=== PATIENT | male | born 1945 | race Caucasian/White ===

== ENCOUNTER 2022-06-21 10:34 | Emergency (ER) | payer MEDICARE, OTHER, SELFPAY ==
[2022-06-21 10:47] VITALS: BP 176/105; PULSE 60; RESP 18; TEMP 35.8; O2SAT 96
[2022-06-21 11:23] LABS: Basophils Absolute Auto 0.02 K/uL (0.00-0.30); Basophils Percent Auto 0.4 % (0.0-3.0); Eosinophils Percent Auto 1.8 % (0.0-7.0); Hematocrit 49.8 % (37.0-53.0); Hemoglobin* 16.6 gm/dL (13.5-17.5); Lymphocytes Absolute Auto 1.64 K/uL (0.90-2.90); Lymphocytes Percent Auto 29.5 % (20-44); Mean Corpuscular HGB Conc 33 gm/dL (32-36); Mean Corpuscular Hemoglobin 30 pg (26-34); Mean Corpuscular Volume 90 fL (80-100); Monocytes Percent Auto 8.3 % (0.0-11.0); Neutrophils Absolute Auto 3.33 K/uL (1.7-7.0); Platelet Count* 258 K/uL (140-440); RDW Coefficient of Variation % 13.4 % (11.5-15.5); Red Blood Count 5.55 m/uL (4.30-5.90); White Blood Count* 5.55 K/uL (4.50-11.00)
[2022-06-21 11:25] LABS: Slide Review Reflex No
--- NOTE | 2022-06-21 11:25 | ED_ITS ---
HPI - General Adult General Time Seen by Provider: 11:26 Date Seen: 06/21/22 Chief complaint: Unspecified Complaint, Adult Stated complaint: Possible giant cell arteritis; eye irritation Time Seen by Provider: 06/21/22 10:53 Source: patient Mode of arrival: ambulatory Limitations: no limitations History of Present Illness HPI narrative: Patient is a pleasant 76-year-old male who has a history of ulcerative colitis, over the last couple days he has had a feeling of something in his eye he saw the eye doctor this morning, and there was no foreign body but with was concern for temporal arteritis given the patient's symptoms. He describes some pain like he was hit in the right side of his head but does not have any trauma or injury history. No rashes noted. He was sent concerned about temporal arteritis to the ER. The patient has no other symptoms no visual problem. No rashes as mention. Related Data Home Medications Medication Instructions Recorded Confirmed lisinopril 10 mg tablet 10 mg PO DAILY 06/21/22 06/22/22 tamsulosin 0.4 mg capsule 0.4 mg PO DAILY 06/21/22 06/22/22 Previous Rx's Medication Instructions Recorded prednisone 50 mg tablet 60 mg PO DAILY #14 tabs 06/21/22 Allergies Allergy/AdvReac Type Severity Reaction Status Date / Time No Known Drug Allergies Allergy Verified 06/21/22 10:47 Review of Systems Status of ROS: Reports: 6 or more systems reviewed and unremarkable except as noted in History and below PFS PFS Social History Smoking Status: Former smoker Do you use any of these nicotine containing products: Other Second hand tobacco smoke exposure: No How often do you have a drink containing alcohol: never How often do you have six or more drinks on one occasion: Never AUDIT-C Alcohol total score: 0 Non-prescribed substance use: denies use service: Yes Exam Narrative: Exam Narrative: Objective: Patient's vital signs unremarkable other than slight little elevated blood pressure HEENT is unremarkable no facial asymmetry pupils react to light extra movements intact, no facial rashes, no tenderness over the temporal artery area on the right Neurologic nonfocal Const: Vital Signs, click to edit/add: Vital Signs - 24 hr 06/21/22 10:47 Temperature 96.4 F L Pulse Rate [Right Pulse Oximeter] 60 Respiratory Rate 18 Blood Pressure [Ri ght Upper Arm] 176/105 H Pulse Oximetry 96 Oxygen Delivery Me thod Room Air Course Vital Signs Vital signs: Initial Vital Signs Temperature 96.4 F L 06/21/22 10:47 Temperature Source Temporal Artery Scan 06/21/22 10:47 Pulse Rate 60 06/21/22 10:47 Respiratory Rate 18 06/21/22 10:47 Blood Pressure 176/105 H 06/21/22 10:47 Blood Pressure Mean 128 06/21/22 10:47 Blood Pressure Position Sitting 06/21/22 10:47 Pulse Oximetry 96 06/21/22 10:47 Oxygen Delivery Method 06/21/22 10:47 Vital Signs Temperature 96.4 F L 06/21/22 10:47 Pulse Rate 60 06/21/22 10:47 Respiratory Rate 18 06/21/22 10:47 Blood Pressure 176/105 H 06/21/22 10:47 Pulse Oximetry 96 06/21/22 10:47 Oxygen Delivery Method 06/21/22 10:47 Temperature 96.4 F L 06/21/22 10:47 Pulse Rate 60 06/21/22 10:47 Respiratory Rate 18 06/21/22 10:47 Blood Pressure 176/105 H 06/21/22 10:47 Pulse Oximetry 96 06/21/22 10:47 Oxygen Delivery Method 06/21/22 10:47 Medical Decision Making MDM Narrative Medical decision making narrative: Patient is a 76 year white male with some right-sided methodist or artery area tenderness, some eye concern. Evaluated by eye physician was concerned about temporal arteritis. Will check a CRP and sed rate laboratory studies, : Has provided surgical consultation will come see the patient here to discuss possibility for temporal artery biopsy. The patient was informed of the decision plan will get prednisone started now as I think that is appropriate to begin started 60 mg daily. Addendum: The patient with : Who offered him temporal artery biopsy, the patient is hesitant at this point, he will follow-up with Dr. Thomas ski will give a week prednisone will set up an appointment for Dr. Banks as well. Return as needed. Lab Data Labs: Lab Results 06/21/22 06/21/22 06/21/22 Range/Units 11:13 11:13 11:13 WBC 5.55 (4.50-11.00) K/uL RBC 5.55 (4.30-5.90) m/uL Hgb 16.6 (13.5-17.5) gm/dL Hct 49.8 (37.0-53.0) % MCV 90 (80-100) fL MCH 30 (26-34) pg MCHC 33 (32-36) gm/dL RDW Coeff of Josiah 13.4 (11.5-15.5) % Plt Count 258 (140-440) K/uL Neut % (Auto) 60.0 (42.0-72.0) % Lymph % (Auto) 29.5 (20-44) % [place] % (Auto) 8.3 (0.0-11.0) % Eos % (Auto) 1.8 (0.0-7.0) % Baso % (Auto) 0.4 (0.0-3.0) % Neut # (Auto) 3.33 (1.7-7.0) K/uL Lymph # (Auto) 1.64 (0.90-2.90) K/uL [place] # (Auto) 0.50 (0.00-0.90) K/UL Eos # (Auto) 0.10 (0.00-0.50) K/uL Baso # (Auto) 0.02 (0.00-0.30) K/uL ESR <7 L (2-15) mm/hr Sodium 138 (135-149) mmol/L Potassium 4.1 (3.6-5.1) mmol/L Chloride 109 (96-114) mmol/L Carbon Dioxide 25 (20-32) mmol/L BUN 9 (7-30) mg/dL Creatinine 0.7 (0.5-1.5) mg/dL Estimated GFR 96 ml/min Glucose 94 (60-115) mg/dL Calcium 8.9 (8.4-10.6) mg/dL C-Reactive Protein < 0.5 L (0.5-1.0) mg/dL Discharge Plan Discharge Clinical Impression: Acute facial pain Patient Disposition: Home, Self-Care Condition: Stable Additional Instructions: prednisone daily, recheck with primary care in 2 to 4 days, return sooner as needed, recheck per surgeon. Surgery check in time 10:45 AM on [facility] March 10. Call Operating Room Scheduling at [phone] with questions. No eating or drinking 8 hours prior. Follow up appointment with Dr. Alegre on June 26 at 11:15 AM Activity Level: Light activity Discharge Diet: Regular Prescriptions: New prednisone 50 mg tablet 60 mg PO DAILY Qty: 14 0RF No Action tamsulosin 0.4 mg capsule 0.4 mg PO DAILY lisinopril 10 mg tablet 10 mg PO DAILY Stand Alone Forms: [employer] Info Instructions
[2022-06-21] MEDS: predniSONE 20 MG TABLET 60 MG PO (11:32)
[2022-06-21 11:42] LABS: Chloride* 109 mmol/L (96-114); Sodium* 138 mmol/L (135-149)
[2022-06-21 11:43] LABS: Potassium* 4.1 mmol/L (3.6-5.1)
[2022-06-21 11:45] LABS: Creatinine* 0.7 mg/dL (0.5-1.5); Estimated Glomerular Filt Rate 96 ml/min
[2022-06-21 11:46] LABS: Blood Urea Nitrogen* 9 mg/dL (7-30); Calcium* 8.9 mg/dL (8.4-10.6); Carbon Dioxide* 25 mmol/L (20-32); Glucose* 94 mg/dL (60-115)
[2022-06-21 11:51] LABS: C Reactive Protein* < 0.5 mg/dL (0.5-1.0)
[2022-06-21 11:59] LABS: Erythrocyte SedimentationRate* <7 mm/hr (2-15)
--- NOTE | 2022-06-21 12:35 | P.GSCN_ITS ---
History of Present Illness Consult details Date Seen: 06/21/22 Consult date: 06/21/22 Narrative: Patient presents for new onset headache and irritation of his right eye. He states that the pain started about 2 days ago. He has some tenderness to touch around his right temporal in fullness under his eye. His biggest complaint is that it feels like ?there is something stuck in my eye?. Was seen by Ophthalmology, with no corneal injury to or debris seen. He was sent to the emergency department for concern for possible temporal arteritis. He has never had pain like this before. He does have a history of ulcerative colitis, not currently requiring medication. He has never had surgery before. Denies any problems with bleeding or blood clots. He does report a family history of ?difficulty waking up and being combative after surgery?. This was in his father and grandfather, his brothers have not had any problems with anesthesia. He denies any history of malignant hyperthermia in his family. Review of Systems Status of ROS: Reports: 10 or more systems reviewed and unremarkable except as noted in History and below [facility] Social History Smoking Status: Former smoker Do you use any of these nicotine containing products: Other Second hand tobacco smoke exposure: No How often do you have a drink containing alcohol: never How often do you have six or more drinks on one occasion: Never AUDIT-C Alcohol total score: 0 Non-prescribed substance use: denies use service: Yes Meds Home Medications and Allergies Home Medications Medication Instructions Recorded Confirmed Type lisinopril 10 mg tablet 10 mg PO DAILY 06/21/22 06/21/22 History tamsulosin 0.4 mg capsule 0.4 mg PO DAILY 06/21/22 06/21/22 History Allergies Allergy/AdvReac Type Severity Reaction Status Date / Time No Known Drug Allergies Allergy Verified 06/21/22 10:47 Exam Narrative: Exam Narrative: General: Alert and oriented, no acute distress HEENT: Tender to palpation over right temporal artery. Artery was easily palpated. No swelling to the right side of the face her I would noted. Patient denies any blurry vision. Pupils equal round and reactive. No redness to sclera. Respiratory: Clear breath sounds bilaterally CV: Regular rhythm rate, well perfused no murmurs. Const: Vital Signs, click to edit/add: Vital Signs - 24 hr 06/21/22 10:47 Temperature 96.4 F L Pulse Rate [Right Pulse Oximeter] 60 Respiratory Rate 18 Blood Pressure [Ri ght Upper Arm] 176/105 H Pulse Oximetry 96 Oxygen Delivery Me thod Room Air Results Labs Labs: Abnormal lab results 06/21/22 06/21/22 Range/Units 11:13 11:13 ESR <7 L (2-15) mm/hr C-Reactive Protein < 0.5 L (0.5-1.0) mg/dL Diabetes panel 06/21/22 Range/Units 11:13 Sodium 138 (135-149) mmol/L Potassium 4.1 (3.6-5.1) mmol/L Chloride 109 (96-114) mmol/L Carbon Dioxide 25 (20-32) mmol/L BUN 9 (7-30) mg/dL Creatinine 0.7 (0.5-1.5) mg/dL Glucose 94 (60-115) mg/dL Calcium 8.9 (8.4-10.6) mg/dL Calcium panel 06/21/22 Range/Units 11:13 Calcium 8.9 (8.4-10.6) mg/dL Pituitary panel 06/21/22 Range/Units 11:13 Sodium 138 (135-149) mmol/L Potassium 4.1 (3.6-5.1) mmol/L Chloride 109 (96-114) mmol/L Carbon Dioxide 25 (20-32) mmol/L BUN 9 (7-30) mg/dL Creatinine 0.7 (0.5-1.5) mg/dL Glucose 94 (60-115) mg/dL Calcium 8.9 (8.4-10.6) mg/dL Adrenal panel 06/21/22 Range/Units 11:13 Sodium 138 (135-149) mmol/L Potassium 4.1 (3.6-5.1) mmol/L Chloride 109 (96-114) mmol/L Carbon Dioxide 25 (20-32) mmol/L BUN 9 (7-30) mg/dL Creatinine 0.7 (0.5-1.5) mg/dL Glucose 94 (60-115) mg/dL Calcium 8.9 (8.4-10.6) mg/dL All other labs normal. Assessment and Plan Assessment and plan (1) Acute facial pain: Status: Acute Plan Patient presents with new onset temporal headache and eye irritation. Given his age and presentation, this is concerning for possible temporal arteritis. Labs were reviewed and are all within normal limits. Although classically you do see an elevation in ESR and CRP, having normal labs does not rule out the diagnosis. He was started on steroids here in the emergency department and prescribed a 7 day course. I discussed with him the risks and benefits of performing a temporal artery biopsy. Risks included, but were not limited to: Bleeding, infection, risk of damage during structures and possible need for additional procedures. All questions and concerns were addressed with patient agreeing at this time to proceed with a biopsy. He is currently scheduled for surgery Sunday afternoon. An EKG was performed for a preop history and physical, this was within normal limits.
== END 2022-06-21 12:48 | disposition home or self-care (01) ==
LOC: ED 11:27
PROVIDERS: Emergency Provider Family Medicine; PCP Family Medicine
DX: R51.9 Headache, unspecified (principal)
CPT/HCPCS: 36415; 80048; 85025; 85651; 86140; 93005; 99284; J7512

== ENCOUNTER 2022-06-23 10:33 | Day surgery (SDC) | payer MEDICARE, OTHER, SELFPAY ==
[2022-06-23 11:13] VITALS: BP 146/83; PULSE 54; RESP 16; TEMP 36.4; O2SAT 94
[2022-06-23] MEDS: SODIUM CHLORIDE 0.9 % (FLUSH) 10 ML SYRINGE IVF (11:30)
[2022-06-23] MEDS: LACTATED RINGERS 1000 ML 1,000 ML 100 ML IV ×2 (11:30→13:32)
[2022-06-23 11:31] VITALS: BMI 28.3
--- NOTE | 2022-06-23 12:31 | W.ANESCHARGE ---
Anesthesia Charges Start Date/Time Anesthesia Start Date: 06/23/22 Anesthesia Start Time: 12:27 Stop Date/Time Anesthesia Stop Date: 06/23/22 Anesthesia Stop Time: 13:47 Summary Extremes of Age - Over 70 or under 1: MDA
[2022-06-23] MEDS: CEFAZOLIN 1 GM inj IVP (12:40)
[2022-06-23] MEDS: LIDOCAINE 1% MDV 20 ML INJECTION (12:55)
[2022-06-23] MEDS: BUPIVACAINE 0.25% 30 ML INJECTION (12:55)
[2022-06-23 13:46] VITALS: BP 101/51; PULSE 60; RESP 18; TEMP 36.2; O2SAT 92
[2022-06-23] MEDS: ACETAMINOPHEN 325 MG TABLET 650 MG PO (13:47)
--- NOTE | 2022-06-23 13:49 | PM.GSPRC ---
Operative Note Date of procedure: 06/23/22 Pre-op diagnosis: Right temporal headaches, rule out temporal arteritis Post-op diagnosis: Same Type of Procedure: Right temporal artery biopsy Indications: Patient is a 76-year-old male with new onset right temporal headaches and vision changes. Symptoms are concerning for possible temporal arteritis. He has been started on steroids, but a biopsy was requested. Risks and benefits of operative intervention were discussed at length with the patient. Risks included, but were not limited to: Bleeding, infection, risk of damage surrounding structures and possible need for additional procedures. All questions and concerns were addressed with patient agreeing to proceed. Procedure Description: After discussing the risks and benefits of the procedure, the patient signed informed consent.? The operative site was marked and the patient was brought to the operating room and placed on the operating table in supine position.? Care was taken to pad the patient's pressure points.?? The patient was then given sedation by anesthesia.?? The operative site was then prepped and draped in the usual sterile fashion.? A time-out was then performed. ? Attention was directed to the right side. The handheld Doppler was utilized to rah out the course of the temporal artery. Local anesthetic was utilized to numb up the area. A 15 blade was used to make an approximate 5 cm incision. Cautery was then used to divide the subcutaneous tissue and assure hemostasis. The artery was visualized within the temporoparietal fascia, which was entered with sharp dissection. A proximal portion of the artery was dissected out and doubly ligated with 3 0 Vicryl and a medium clip. The dissection was then carried distally for approximately 2 cm and ligated. The specimen was then carefully removed, trying to limit manipulation of the vessel itself, and passed off to the back table. Again hemostasis was assured and the incision closed with interrupted 3 0 Vicryl and running 4 Monocryl. Sterile dressings were then applied. ? The patient was then woken and transported to the recovery area in stable condition. ? The patient tolerated the procedure well. Findings: Right temporal artery, normal in appearance Anesthesia: MAC and local Surgeon: Leann Quintero MD Estimated blood loss (mL): 2 Additional Specimen Information: Right temporal artery Condition: stable Disposition: same day
--- NOTE | 2022-06-23 13:50 | W.ANESCHARGE ---
Anesthesia Charges Start Date/Time Anesthesia Start Date: 06/23/22 Anesthesia Start Time: 12:27 Stop Date/Time Anesthesia Stop Date: 06/23/22 Anesthesia Stop Time: 13:47
[2022-06-23 14:00] VITALS: BP 124/70; PULSE 52; RESP 18; O2SAT 94
[2022-06-23 14:15] VITALS: BP 135/73; PULSE 53; RESP 18; O2SAT 93
[2022-06-23 14:30] VITALS: BP 98/75; PULSE 64; RESP 18; O2SAT 95
--- NOTE | 2022-06-23 14:57 | SUR.PHASEII ---
PATIENT TOLERATED TOAST, WATER AND COFFEE. PATIENT VOIDED PRIOR TO DISCHARGE.
== END 2022-06-23 15:00 | disposition home or self-care (01) ==
PROVIDERS: PCP Family Medicine; Visit Provider Surgery
PROC: (CPT 37609; principal; 2022-06-23 12:00)
DX: R51.9 Headache, unspecified (principal); H53.9 Unspecified visual disturbance
CPT/HCPCS: 37609; 00352; 88305; 99100; A9270; J0690; J1100; J2405; J2704; J3010; J3490; J7120

== ENCOUNTER 2022-06-24 10:36 | Emergency (ER) | payer MEDICARE, OTHER, SELFPAY ==
[2022-06-24] VITALS (20 sets, daily range): BP systolic 119–141; BP diastolic 63–73; PULSE 47–67; RESP 14; TEMP 36.3; O2SAT 90–98; BMI 28.3
--- NOTE | 2022-06-24 11:13 | ED_ITS ---
HPI - Chest Pain General Chief Complaint: Chest Pain Stated Complaint: Chest pain, pain radiating across shoulderblades Time Seen by Provider: 06/24/22 10:51 History of Present Illness HPI narrative: This 76-year-old male comes in reporting chest pain that started prior to arrival here. He states that he was at [employer] doing light activity when this pain came on in the left sternal area and radiating around toward his back. He did not have any nausea, vomiting, lightheadedness, shortness of breath or diaphoresis. He went out of the building and his pain had improved. When he got in the car it seemed to come back again. He arrived here for evaluation and reports that his pain worsened again when ambulating into the emergency department. At the time of my visit he is having no pain. He did have some diaphoresis when ambulating here from his car. He does not have a prior heart history. He did have a cardiac workup a couple years ago because of similar pains. His results of these tests were all normal. He was prescribed metoprolol and nitroglycerin. He did not ever take nitroglycerin. He states that the metoprolol was not well tolerated so he is no longer taking this medicine. He is on some blood pressure medicines. His cholesterol is borderline by his report. He does not have diabetes and is not a smoker. Prior to this he has not had any symptoms of exercise intolerance. Related Data Home Medications Medication Instructions Recorded Confirmed lisinopril 10 mg tablet 10 mg PO DAILY 06/21/22 06/24/22 tamsulosin 0.4 mg capsule 0.4 mg PO DAILY 06/21/22 06/23/22 CDD DAILY 06/23/22 mesalamine PO 06/23/22 prazosin 2 mg .Route DAILY 06/23/22 06/23/22 viatmin d 1,000 mg .krishnamurthy 06/23/22 aspirin 81 mg capsule 81 mg PO DAILY 06/24/22 06/24/22 Previous Rx's Medication Instructions Recorded prednisone 50 mg tablet 60 mg PO DAILY #14 tabs 06/21/22 Allergies Allergy/AdvReac Type Severity Reaction Status Date / Time No Known Drug Allergies Allergy Verified 06/23/22 10:50 Review of Systems Status of ROS Reports: 10 or more systems reviewed and unremarkable except as noted in History and below Narrative Constitutional: No fevers, no weight gain or loss. Eyes: No discharge. No vision changes. HENT: No congestion, no sore throat, no ear pain. Cardiovascular: No palpitations. Chest pain as described above. Respiratory: No shortness of breath, no wheezes, no cough. Gastrointestinal: No abdominal pain, no vomiting, no diarrhea. Genitourinary: No dysuria, no hematuria. Musculoskeletal: Normal range of motion. Skin: No rashes, no pruritis. Neurological: No dizziness, weakness, sensory change, speech change. Endo/Heme/Allergies: No bruising or bleeding. No polydipsia. Pysch: no suicidality, no anxiety, no insomnia. All other systems reviewed and are negative. [facility] Social History Smoking Status: Former smoker Do you use any of these nicotine containing products: Other Nicotine containing products detail: uses nicotine lozenges about 5 times/day Second hand tobacco smoke exposure: No How often do you have a drink containing alcohol: never How often do you have six or more drinks on one occasion: Never AUDIT-C Alcohol total score: 0 Non-prescribed substance use: denies use Non-prescribed substance use details: takes CDD tablet 1x/day Caffeine: Yes (2 cups/day coffee) service: Yes Exam Narrative Exam Narrative: Constitutional: Well-developed, well-nourished, no acute distress. HEENT: Normocephalic, atraumatic. Neck: Normal range of motion. Nontender. Supple. Heart: Regular. No murmurs. Normal rate. Intact distal pulses. Lungs: Clear to auscultation. No chest discomfort. No wheezes, rhonchi, or rales. Abdomen: Normal bowel sounds. Nontender. No rebound tenderness. Genitalia: Deferred. Back: No midline tenderness. Normal range of motion. Extremities: Normal range of motion. No injury. Skin: Intact. No rash. Warm. No erythema or pallor. Neurologic: No altered sensation. No weakness. Alert and oriented. Psychiatric: No suicidality. No anxiety or depression. No insomnia. Nursing notes and vitals signs are reviewed. Const Vital Signs, click to edit/add: Vital Signs - 24 hr 06/24/22 10:44 06/24/22 11:36 06/24/22 11:45 Temperature 97.4 F L Pulse Rate 60 57 L Pulse Rate [Pulse Oximeter] 67 Respiratory Rate 14 Blood Pressure Blood Pressure [Left Upper Arm] 141/73 H Pulse Oximetry 96 94 93 Oxygen Delivery Method Room Air 06/24/22 12:00 06/24/22 12:01 06/24/22 12:27 Temperature Pulse Rate 59 L 58 L 49 L Pulse Rate [Pulse Oximeter] Respiratory Rate Blood Pressure 119/63 Blood Pressure [Left Upper Arm] Pulse Oximetry 90 92 95 Oxygen Delivery Method 06/24/22 12:30 06/24/22 12:31 Temperature Pulse Rate 48 L 53 L Pulse Rate [Pulse Oximeter] Respiratory Rate Blood Pressure 128/63 Blood Pressure [Left Upper Arm] Pulse Oximetry 96 97 Oxygen Delivery Method Course Vital Signs Vital signs: Initial Vital Signs Temperature 97.4 F L 06/24/22 10:44 Temperature Source Temporal Artery Scan 06/24/22 10:44 Pulse Rate 67 06/24/22 10:44 Pulse Rhythm 06/24/22 10:44 Respiratory Rate 14 06/24/22 10:44 Blood Pressure 141/73 H 06/24/22 10:44 Blood Pressure Mean 95 06/24/22 10:44 Blood Pressure Position Supine 06/24/22 10:44 Pulse Oximetry 96 06/24/22 10:44 Oxygen Delivery Method 06/24/22 10:44 Vital Signs Temperature 97.4 F L 06/24/22 10:44 Pulse Rate 67 06/24/22 10:44 Respiratory Rate 14 06/24/22 10:44 Blood Pressure 141/73 H 06/24/22 10:44 Pulse Oximetry 96 06/24/22 10:44 Oxygen Delivery Method 06/24/22 10:44 Temperature 97.4 F L 06/24/22 10:44 Pulse Rate 53 L 06/24/22 12:31 Respiratory Rate 14 06/24/22 10:44 Blood Pressure 128/63 06/24/22 12:31 Pulse Oximetry 97 06/24/22 12:31 Oxygen Delivery Method 06/24/22 10:44 MDM - Chest Pain MDM Narrative Medical decision making narrative: This patient comes in with some chest discomfort as described above. He did have a thorough cardiac workup a couple years ago with normal findings. He does not describe any exercise intolerance recently. Today his symptoms occurred doing very light activity. He arrives with reassuring vital signs. EKG shows normal sinus rhythm. And serial troponins return at 0. This patient is taking a steroid, prednisone 60 mg daily, with the pending results of a biopsy of the right temporal artery. He does not have known history of polymyalgia rheumatica or temporal arteritis. His chest pain today is atypical and not likely a sign of coronary artery disease. It may be related to his steroid dosing or some other atypical cause. At the time of discharge the patient appears safe for outpatient management. The treatment plan is reviewed along with written and verbal return precautions. Reasons to return and the importance of close followup were also reviewed. Lab Data Labs: Lab Results 06/24/22 06/24/22 06/24/22 Range/Units 11:00 11:00 11:00 WBC 10.41 (4.50-11.00) K/uL RBC 5.10 (4.30-5.90) m/uL Hgb 15.3 (13.5-17.5) gm/dL Hct 46.0 (37.0-53.0) % MCV 90 (80-100) fL MCH 30 (26-34) pg MCHC 33 (32-36) gm/dL RDW Coeff of Josiah 13.2 (11.5-15.5) % Plt Count 286 (140-440) K/uL Neut % (Auto) 86.6 H (42.0-72.0) % Lymph % (Auto) 10.1 L (20-44) % [place] % (Auto) 3.0 (0.0-11.0) % Eos % (Auto) 0.0 (0.0-7.0) % Baso % (Auto) 0.0 (0.0-3.0) % Neut # (Auto) 9.00 H (1.7-7.0) K/uL Lymph # (Auto) 1.10 (0.90-2.90) K/uL [place] # (Auto) 0.30 (0.00-0.90) K/UL Eos # (Auto) 0.00 (0.00-0.50) K/uL Baso # (Auto) 0.00 (0.00-0.30) K/uL Sodium 136 (135-149) mmol/L Potassium 4.2 (3.6-5.1) mmol/L Chloride 105 (96-114) mmol/L Carbon Dioxide 26 (20-32) mmol/L BUN 17 (7-30) mg/dL Creatinine 0.7 (0.5-1.5) mg/dL Estimated Creat Clear 53.44 Estimated GFR 96 ml/min Glucose 168 H (60-115) mg/dL Calcium 8.8 (8.4-10.6) mg/dL POC Troponin I 0.00 L (0.01-0.04) ng/ml 06/24/22 Range/Units 13:30 WBC (4.50-11.00) K/uL RBC (4.30-5.90) m/uL Hgb (13.5-17.5) gm/dL Hct (37.0-53.0) % MCV (80-100) fL MCH (26-34) pg MCHC (32-36) gm/dL RDW Coeff of Josiah (11.5-15.5) % Plt Count (140-440) K/uL Neut % (Auto) (42.0-72.0) % Lymph % (Auto) (20-44) % [place] % (Auto) (0.0-11.0) % Eos % (Auto) (0.0-7.0) % Baso % (Auto) (0.0-3.0) % Neut # (Auto) (1.7-7.0) K/uL Lymph # (Auto) (0.90-2.90) K/uL [place] # (Auto) (0.00-0.90) K/UL Eos # (Auto) (0.00-0.50) K/uL Baso # (Auto) (0.00-0.30) K/uL Sodium (135-149) mmol/L Potassium (3.6-5.1) mmol/L Chloride (96-114) mmol/L Carbon Dioxide (20-32) mmol/L BUN (7-30) mg/dL Creatinine (0.5-1.5) mg/dL Estimated Creat Clear Estimated GFR ml/min Glucose (60-115) mg/dL Calcium (8.4-10.6) mg/dL POC Troponin I 0.00 L (0.01-0.04) ng/ml ECG Data Attestation: I personally reviewed and interpreted this ECG as follows: Interpretation: Normal sinus rhythm. Rate is 66 beats per minute. There are no ST or T-wave abnormalities. Discharge Plan Discharge Clinical Impression: Atypical chest pain Patient Disposition: Home, Self-Care Condition: Improved Additional Instructions: Continue current plans. Follow up with MD or return if symptoms are recurrent or worsening. Prescriptions: No Action tamsulosin 0.4 mg capsule 0.4 mg PO DAILY lisinopril 10 mg tablet 10 mg PO DAILY prednisone 50 mg tablet 60 mg PO DAILY Qty: 14 0RF aspirin 81 mg capsule 81 mg PO DAILY prazosin 2 mg .Route DAILY mesalamine PO viatmin d 1,000 mg .krishnamurthy CDD DAILY Follow Up/Referrals: Christiano Alegre MD [Primary Care Provider] - Stand Alone Forms: [employer] Info Instructions
[2022-06-24 11:34] LABS: Hemoglobin* 15.3 gm/dL (13.5-17.5); Immature Granulocytes Abs Auto 0.03 K/uL (0.00-0.30); Immature Granulocytes Pct Auto 0.3 %; Lymphocytes Percent Auto 10.1 % (20-44); Mean Corpuscular HGB Conc 33 gm/dL (32-36); Mean Corpuscular Hemoglobin 30 pg (26-34); Mean Corpuscular Volume 90 fL (80-100); Neutrophils Percent Auto 86.6 % (42.0-72.0); Platelet Count* 286 K/uL (140-440); RDW Coefficient of Variation % 13.2 % (11.5-15.5); Slide Review Reflex No; White Blood Count* 10.41 K/uL (4.50-11.00)
[2022-06-24 11:47] LABS: Chloride* 105 mmol/L (96-114); Potassium* 4.2 mmol/L (3.6-5.1); Sodium* 136 mmol/L (135-149)
[2022-06-24 11:50] LABS: Blood Urea Nitrogen* 17 mg/dL (7-30); Calcium* 8.8 mg/dL (8.4-10.6); Carbon Dioxide* 26 mmol/L (20-32); Creatinine* 0.7 mg/dL (0.5-1.5); Est. Creatinine Clearance* 53.44; Estimated Glomerular Filt Rate 96 ml/min; Glucose* 168 mg/dL (60-115)
== END 2022-06-24 14:35 | disposition home or self-care (01) ==
PROVIDERS: Emergency Provider Emergency Medicine Emergency Medical Services; PCP Family Medicine
DX: R07.89 Other chest pain (principal)
CPT/HCPCS: 36415; 80048; 84484; 85025; 93005; 94761; 99284; 99285

== ENCOUNTER 2023-01-02 06:05 | Observation (INO) | payer MEDICARE, OTHER, SELFPAY ==
[2023-01-02] VITALS (33 sets, daily range): BP systolic 111–161; BP diastolic 64–100; PULSE 53–68; RESP 16; TEMP 36.4–36.6; O2SAT 92–98; BMI 29.0
--- NOTE | 2023-01-02 | CT_ITS ---
Patient: MARIUM RANDHAWA Facility:?[facility] R[facility] Patient ID:?[id number] Site Patient ID:?[id number]. Site :?1945 Study:?CT-Head Angio WITH 95CC [id number] CONTRAST STROKE co-01/02/2023 6:54:11 AM Ordering Physician:Kayden Eric Final Report: CLINICAL HISTORY: Dizziness. TECHNIQUE: CTA head with contrast bolus tracking. 3D angiographic rendering using maximum intensity projection (MIP) and images permanently archived. COMPARISON: None available. FINDINGS: The right vertebral remains occluded. The petrous, cavernous, and supraclinoid segments of the internal carotid arteries are patent. The anterior and middle cerebral arteries are patent. The anterior communicating artery is visualized and is within normal limits. The intracranial left vertebral artery, basilar trunk, and posterior cerebral arteries are patent. Scattered intracranial atherosclerotic disease. 10mm hypervascular lesion in the lesion in the posterior right frontal lobe. No evidence of cerebral aneurysm. IMPRESSION: 1. The right vertebral artery remains occluded intracranially. 2. 10mm hypervascular/enhancing lesion in the posterior right frontal lobe. This is nonspecific but may reflect an underlying arteriovenous shunting lesion. MRI of the brain with and without contrast as well as vjdo-db-ehcocn MRA of the head to include the vertex of the head is recommended. Pending the results of these examinations, catheter angiogram should be considered. Please note that all CT scans at this facility use dose modulation, iterative reconstruction, and/or weight-based dosing when appropriate to reduce radiation dose to as low as reasonably achievable. Dictated by Lui Gibbs MD @ 01/02/2023 10:37:14 AM Signed by:?Lui Gibbs MD @01/02/2023 10:37:14 AM (Electronic Signature)
--- NOTE | 2023-01-02 | CT_ITS ---
Patient: MARIUM RANDHAWA Facility:?[facility] R[facility] Patient ID:?[id number] Site Patient ID:?[id number]. Site :?1945 Study:?CT-Neck Angio WITH 95CC [id number] CONTRAST STROKE co-01/02/2023 6:55:08 AM Ordering Physician:Kayden Eric Final Report: CLINICAL HISTORY: Dizziness. TECHNIQUE: CTA neck with contrast bolus tracking. 3D angiographic rendering using maximum intensity projection (MIP) and images permanently archived. COMPARISON: None available. FINDINGS: The great vessels are patent. The common carotid arteries are patent. Mild (less than 50 percent) atherosclerotic stenoses of the bilateral proximal ICAs by NASCET criteria. The more distal cervical ICAs are patent. 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 The remains occluded throughout its course. The origin and cervical segments of the left vertebral artery are patent. IMPRESSION: 1. 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 2. Mild (<50%) stenosis of the bilateral proximal ICAs by NASCET criteria. Please note that all CT scans at this facility use dose modulation, iterative reconstruction, and/or weight-based dosing when appropriate to reduce radiation dose to as low as reasonably achievable. Dictated by Lui Gibbs MD @ 01/02/2023 10:41:43 AM Signed by:?Lui Gibbs MD @01/02/2023 10:41:43 AM (Electronic Signature)
--- NOTE | 2023-01-02 | CT_ITS ---
Patient: MARIUM RANDHAWA Facility:?[facility] Patient ID:?[id number] Site Patient ID:?[id number]. Site :?1945 Study:?CT-Head W/O-01/02/2023 6:48:33 AM Ordering Physician:Kayden Eric Final Report: INDICATION: Clinical signs and symptoms of an acute stroke. Dizziness COMPARISON: None TECHNIQUE: CT examination of the head was performed as axial sections without intravenous contrast. Images were obtained from the vertex of the skull through the skull base. Please note that all CT scans at this facility use dose modulation, iterative reconstruction, and/or weight-based dosing when appropriate to reduce radiation dose to as low as reasonably achievable. FINDINGS: The brain shows no sign of mass lesion, mass effect, hemorrhage, or edema. The ventricles and sulci are normal in appearance for the patient`s age. The visualized portions of the orbits are normal in appearance. The osseous structures are normal in their appearance with no sign of abnormality in the skull base or calvarium. Intracranial atherosclerosis noted Incidental paranasal sinus mucosal inflammatory disease. IMPRESSION: No acute intracranial findings. Intracranial atherosclerosis. Incidental paranasal sinus mucosal inflammatory disease. Please note that all CT scans at this facility use dose modulation, iterative reconstruction, and/or weight-based dosing when appropriate to reduce radiation dose to as low as reasonably achievable. Dictated by Adrián Porras MD @ 01/02/2023 6:54:54 AM ----- ADDENDUM ----- We confirmed that this report was received by Dr. Post at 6:55 am on January 02, 2023. Dictated by Adrián Porras MD @ Jan 02 2023 6:55AM Signed by:?Adrián Porras MD @01/02/2023 6:54:54 AM (Electronic Signature)
--- NOTE | 2023-01-02 06:14 | CRLHL7_ITS ---
For Patients: As a result of the Century Cures Act, medical imaging exams and procedure reports are released immediately into your electronic medical record. You may view this report before your referring provider. If you have questions, please contact your health care provider. INDICATION: Clinical signs and symptoms of an acute stroke. Dizziness COMPARISON: None TECHNIQUE: CT examination of the head was performed as axial sections without intravenous contrast. Images were obtained from the vertex of the skull through the skull base. Please note that all CT scans at this facility use dose modulation, iterative reconstruction, and/or weight-based dosing when appropriate to reduce radiation dose to as low as reasonably achievable. FINDINGS: The brain shows no sign of mass lesion, mass effect, hemorrhage, or edema. The ventricles and sulci are normal in appearance for the patient`s age. The visualized portions of the orbits are normal in appearance. The osseous structures are normal in their appearance with no sign of abnormality in the skull base or calvarium. Intracranial atherosclerosis noted Incidental paranasal sinus mucosal inflammatory disease. IMPRESSION: No acute intracranial findings. Intracranial atherosclerosis. Incidental paranasal sinus mucosal inflammatory disease. Please note that all CT scans at this facility use dose modulation, iterative reconstruction, and/or weight-based dosing when appropriate to reduce radiation dose to as low as reasonably achievable. Dictated by Adrián Porras MD @ 01/02/2023 6:54:54 AM (Electronically Signed)
--- NOTE | 2023-01-02 06:23 | CRLHL7_ITS ---
For Patients: As a result of the Century Cures Act, medical imaging exams and procedure reports are released immediately into your electronic medical record. You may view this report before your referring provider. If you have questions, please contact your health care provider. CLINICAL HISTORY: Dizziness. TECHNIQUE: CTA head with contrast bolus tracking. 3D angiographic rendering using maximum intensity projection (MIP) and images permanently archived. COMPARISON: None available. FINDINGS: The right vertebral remains occluded. The petrous, cavernous, and supraclinoid segments of the internal carotid arteries are patent. The anterior and middle cerebral arteries are patent. The anterior communicating artery is visualized and is within normal limits. The intracranial left vertebral artery, basilar trunk, and posterior cerebral arteries are patent. Scattered intracranial atherosclerotic disease. 10mm hypervascular lesion in the lesion in the posterior right frontal lobe. No evidence of cerebral aneurysm. IMPRESSION: 1. The right vertebral artery remains occluded intracranially. 2. 10mm hypervascular/enhancing lesion in the posterior right frontal lobe. This is nonspecific but may reflect an underlying arteriovenous shunting lesion. MRI of the brain with and without contrast as well as onre-kt-gnopkh MRA of the head to include the vertex of the head is recommended. Pending the results of these examinations, catheter angiogram should be considered. Please note that all CT scans at this facility use dose modulation, iterative reconstruction, and/or weight-based dosing when appropriate to reduce radiation dose to as low as reasonably achievable. Dictated by Lui Gibbs MD @ 01/02/2023 10:37:14 AM (Electronically Signed)
[2023-01-02 06:26] LABS: Basophils Absolute Auto 0.03 K/uL (0.00-0.30); Basophils Percent Auto 0.5 % (0.0-3.0); Eosinophils Absolute Auto 0.23 K/uL (0.00-0.50); Eosinophils Percent Auto 3.6 % (0.0-7.0); Hematocrit 49.9 % (37.0-53.0); Hemoglobin* 16.6 gm/dL (13.5-17.5); Lymphocytes Absolute Auto 1.81 K/uL (0.90-2.90); Lymphocytes Percent Auto 28.2 % (20-44); Mean Corpuscular HGB Conc 33 gm/dL (32-36); Mean Corpuscular Hemoglobin 29 pg (26-34); Mean Corpuscular Volume 88 fL (80-100); Monocytes Percent Auto 7.8 % (0.0-11.0); Neutrophils Absolute Auto 3.84 K/uL (1.7-7.0); Neutrophils Percent Auto 59.9 % (42.0-72.0); Platelet Count* 260 K/uL (140-440); RDW Coefficient of Variation % 13.4 % (11.5-15.5); Red Blood Count 5.65 m/uL (4.30-5.90); White Blood Count* 6.41 K/uL (4.50-11.00)
[2023-01-02 06:27] LABS: Slide Review Reflex No
[2023-01-02 06:40] LABS: Chloride* 108 mmol/L (96-114); Potassium* 4.2 mmol/L (3.6-5.1); Sodium* 138 mmol/L (135-149)
[2023-01-02 06:43] LABS: Creatinine* 0.8 mg/dL (0.5-1.5); Estimated Glomerular Filt Rate 92 ml/min
[2023-01-02 06:44] LABS: Anion Gap 7 mEq/L (7-15); Blood Urea Nitrogen* 12 mg/dL (7-30); Calcium* 9.2 mg/dL (8.4-10.6); Carbon Dioxide* 23 mmol/L (20-32); Glucose* 112 mg/dL (60-115)
[2023-01-02 06:49] LABS: C Reactive Protein* < 0.5 mg/dL (0.5-1.0)
--- OUTSIDE RECORDS SUMMARY | 2023-01-02 06:53 | XMS_ITS | Continuity of Care Document ---
Author Name Unknown Organization [facility] Address [address] [address] [place] [address] Phone Care Team Providers Care Professor Of Anthropology Name Role Phone Unavailable Unavailable Unavailable Allergies, Adverse Reactions, Alerts Substance Reaction Status Criticality No Known allergies Medications Medication Instructions Dosage Effective Dates (start - stop) Status Comments Zestril 10 mg Tab Take one tablet by mouth daily - Active Pravachol 40 mg Tab Take one tablet by mouth daily - Active Aspirin Low Dose 81 mg Tab, Delayed Release Take one tablet by mouth daily - Active Procedures Procedure Date Colonoscopy Flex; Dx (dec Pro) Advance Directives Directive Yes / No Effective Date File Name No Information Encounters Encounter Description Practice Location Reason(s) For Visit Diagnoses Date Provider Providers Copied on Encounter [facility], [address] [address], [place], [place], [id number], [place] tel:[phone] [facility] Colon Cancer ScreeningHemorrh oids NosFamily Hx/Colonic Polyps 8200 7 No Information Family History Family Member Type Diagnosis Age At Onset No Information Payers Payer name Insurance type Covered alliance party ID Authoriza tion(s) [employer] [place] [id number] [place] [id number] Social History Type Description Quantity Date Captured Comments Sex Male Smoking Status No Information Chief Complaint And Reason For Visit No Information Reason For Referral Reason For Referral No Information History Of Present Illness Encounter Date Complaint History Of Prese nt Illness No Information Functional Status Date Functional Assessmen t No Information Instructions Date Instruction Additional Infor mation No Information Assessments Type Assessment Date No Information Patient Care Teams Name Effective Dates (start - stop) Status Members No Information
--- NOTE | 2023-01-02 07:09 | ED.NURSE ---
nurse to nurse report given to Aleja.
--- NOTE | 2023-01-02 07:18 | ED.NURSE ---
symptoms have resolved at this time
--- NOTE | 2023-01-02 07:30 | ED.GENADULT ---
HPI - General Adult General Chief complaint: Dizziness/Vertigo Stated complaint: head pain, dizzy Time Seen by Provider: 01/02/23 06:09 Source: patient Mode of arrival: ambulatory Limitations: no limitations History of Present Illness HPI narrative: 77-year-old male that awoke at 4:00 a.m. with a headache behind his right ear, sudden and focal. He got up to go to the bathroom and started to feel dizzy and felt like he was falling to the left side, hitting the left hallway wall. He went to the bathroom and then went to lay down and felt restless. Because of this he went to get up and going to the living room to lie in the chair. He felt unsteady walking into the living room and when he tried to lay down had vertigo-like dizziness with feeling of the room spinning. He tried to rest for a couple of minutes and his symptoms did not gunjan, therefore he woke up his . This lasted about 30 minutes total. He presents to the emergency department about 2 hours after onset of symptoms. At this time, headache is already starting to improve and he is starting to feel less dizzy. He also notes his vision on the left side seems a little blurry. No falls, no trauma, no injury. He does not take any blood thinners. No neck pain or stiffness. No prior history of similar symptoms. He does have a history of hypertension and hyperlipidemia. He reports that he has been prescribed statins in the past but does not tolerate these. He tried taking 2 ibuprofen which initially did not improve his headache, but his headache is improved now so he is unsure of the correlation. No prior history of strokes, brain tumors or bleeds. No history of coronary artery disease, AFib or arrhythmia. Last known normal and well was 10:00 p.m.. Past medical history notable for hypertension, BPH, ulcerative colitis. Home meds notable for tamsulosin, prazosin, mesalamine and lisinopril 10 mg at bedtime. Socially, he is a former smoker, denies significant alcohol intake. No pertinent travel. ROS notable for the neurological changes as described above which have markedly improved. Otherwise benign times 12 systems. Related Data Home Medications Medication Instructions Recorded Confirmed lisinopril 10 mg tablet 10 mg PO DAILY 06/21/22 01/02/23 tamsulosin 0.4 mg capsule 0.4 mg PO DAILY 06/21/22 01/02/23 CDD DAILY 06/23/22 mesalamine PO 06/23/22 prazosin 2 mg .Route DAILY 06/23/22 01/02/23 viatmin d 1,000 mg .krishnamurthy 06/23/22 aspirin 81 mg capsule 81 mg PO DAILY 06/24/22 01/02/23 Allergies Allergy/AdvReac Type Severity Reaction Status Date / Time No Known Drug Allergies Allergy Verified 01/02/23 06:19 PFSH PFS Social History Smoking Status: Former smoker Do you use any of these nicotine containing products: Other Nicotine containing products detail: uses nicotine lozenges about 5 times/day Second hand tobacco smoke exposure: No How often do you have a drink containing alcohol: never How often do you have six or more drinks on one occasion: Never AUDIT-C Alcohol total score: 0 Non-prescribed substance use: denies use Non-prescribed substance use details: takes CDD tablet 1x/day Caffeine: Yes (2 cups/day coffee) service: Yes Exam Narrative: Exam Narrative: NIH 0. Const: Vital Signs, click to edit/add: Vital Signs - 24 hr 01/02/23 06:22 01/02/23 06:36 01/02/23 06:38 Temperature 97.6 F Pulse Rate 59 L Pulse Rate [Pulse Oximeter] 57 L Respiratory Rate 16 Blood Pressure Blood Pressure [Ri ght Upper Arm] 148/90 H Pulse Oximetry 94 98 97 Oxygen Delivery Me thod Room Air 01/02/23 06:45 Temperature Pulse Rate 57 L Pulse Rate [Pulse Oximeter] Respiratory Rate Blood Pressure 147/79 H Blood Pressure [Ri ght Upper Arm] Pulse Oximetry 94 Oxygen Delivery Me thod Documenting provider has reviewed patient's vital signs: yes Common normals: no apparent distress, oriented x3 and alert General appearance: cooperative, comfortable and well kempt HENMT: Common normals: normocephalic Head and scalp: normocephalic Face and sinus: normal facial exam Mouth: oral and palatal mucosa normal Throat: posterior oropharynx normal Eye: Common normals: conjunctivae normal General eye: normal appearance of both eyes Conjunctiva: conjunctiva(e) normal Neck & C-Spine: Common normals: full ROM, no lymphadenopathy and no meningeal signs Resp: Common normals: normal respiratory effort, no use of accessory muscles and clear to auscultation bilaterally Effort & inspection: able to speak in complete sentences Auscultation: clear to auscultation bilaterally Cardio: Common normals: regular rate, regular rhythm, S1 normal heart sound, S2 normal heart sound and no murmurs Rate: regular rate Rhythm: regular rhythm Heart sounds: S1 normal and S2 normal GI: Common normals: Normal to inspection, nondistended, normoactive bowel sounds present, soft to palpation, non-tender, no hepatosplenomegaly and no masses Palpation: soft and no hepatosplenomegaly Extremity: Common normals: normal to inspection, normal capillary refill and no clubbing, cyanosis or edema Neuro: Common normals: oriented x3, CN's II-XII intact bilaterally, moves all extremities, no focal motor deficits and no sensory deficits noted Sensorium/orientation: alert Meningeal signs: no meningeal signs Coordination/balance: hdbcyo-am-peor test normal, wkhy-qu-bslc test normal and Normal rapid alternating movements of the distal upper extremity present (Neuro) Speech: speech normal Motor exam: strength 5/5 throughout, no pronator drift, no tremor noted and no movement abnormalities noted Coordination: odfqnr-ou-ihkd test normal, nwvg-rs-kzly test normal and rapid alternating movement UE normal Psych: Appearance: well kempt Activity/motor behavior: appropriate eye contact Mood and affect: euthymic mood Attention/concentration: attention grossly intact Memory/cognition: memory grossly intact Insight: insight good Judgement: judgment good Skin: Common normals: no rashes or lesions noted General skin exam: no rashes or lesions noted Course Course ED Course: Patient had a bedside upon arrival. Brief initial exam, then transported to CT scan. Initial CT scan without any signs of obvious bleed per my interpretation, therefore was converted immediately to CT angio. Differential diagnosis including stroke, TIA, brain tumor, vertigo, BPH, migraine, among others. Will give 325 of oral aspirin. Awaiting CT angio report. Will perform basic labs, EKG and monitor. Hourly neurological status checks, consider neurology consult. Reevaluation(s) Time of Reevaluation #1: 09:03 Reevaluation #1: Patient remains neurologically normal, asymptomatic. Reviewed the angiogram findings with patient and family, vascular abnormality and right frontal lobe is likely not related to today's symptoms.. Spoke with Dr. Bennett from Neurology. She is recommending an MRI, MRA, observation admission. Spoke with our hospitalist, Dr. Gudino, she accepts admission. Vital Signs Vital signs: Initial Vital Signs Temperature 97.6 F 01/02/23 06:22 Temperature Source Temporal Artery Scan 01/02/23 06:22 Pulse Rate 57 L 01/02/23 06:22 Respiratory Rate 16 01/02/23 06:22 Blood Pressure 148/90 H 01/02/23 06:22 Blood Pressure Mean 109 H 01/02/23 06:22 Pulse Oximetry 94 01/02/23 06:22 Oxygen Delivery Method Room Air 01/02/23 06:22 Vital Signs Temperature 97.6 F 01/02/23 06:22 Pulse Rate 57 L 01/02/23 06:22 Respiratory Rate 16 01/02/23 06:22 Blood Pressure 148/90 H 01/02/23 06:22 Pulse Oximetry 94 01/02/23 06:22 Oxygen Delivery Method Room Air 01/02/23 06:22 Temperature 97.6 F 01/02/23 06:22 Pulse Rate 57 L 01/02/23 06:45 Respiratory Rate 16 01/02/23 06:22 Blood Pressure 147/79 H 01/02/23 06:45 Pulse Oximetry 94 01/02/23 06:45 Oxygen Delivery Method Room Air 01/02/23 06:22 Medical Decision Making Lab Data Lab results reviewed: Yes I reviewed the patient's lab results Lab results narrative: Labs reassuring. Labs: Lab Results 01/02/23 Range/Units 06:18 WBC 6.41 (4.50-11.00) K/uL RBC 5.65 (4.30-5.90) m/uL Hgb 16.6 (13.5-17.5) gm/dL Hct 49.9 (37.0-53.0) % MCV 88 (80-100) fL MCH 29 (26-34) pg MCHC 33 (32-36) gm/dL RDW Coeff of Josiah 13.4 (11.5-15.5) % Plt Count 260 (140-440) K/uL Neut % (Auto) 59.9 (42.0-72.0) % Lymph % (Auto) 28.2 (20-44) % Shelby % (Auto) 7.8 (0.0-11.0) % Eos % (Auto) 3.6 (0.0-7.0) % Baso % (Auto) 0.5 (0.0-3.0) % Neut # (Auto) 3.84 (1.7-7.0) K/uL Lymph # (Auto) 1.81 (0.90-2.90) K/uL Shelby # (Auto) 0.50 (0.00-0.90) K/UL Eos # (Auto) 0.23 (0.00-0.50) K/uL Baso # (Auto) 0.03 (0.00-0.30) K/uL Abs Immat Gran (auto) 0.00 (0.00-0.30) K/uL Imm/Tot Granulo (auto) 0.0 % Sodium 138 (135-149) mmol/L Potassium 4.2 (3.6-5.1) mmol/L Chloride 108 (96-114) mmol/L Carbon Dioxide 23 (20-32) mmol/L Anion Gap 7 (7-15) mEq/L BUN 12 (7-30) mg/dL Creatinine 0.8 (0.5-1.5) mg/dL Estimated GFR 92 ml/min Glucose 112 (60-115) mg/dL Calcium 9.2 (8.4-10.6) mg/dL C-Reactive Protein < 0.5 L (0.5-1.0) mg/dL Imaging Data CT scan - head: Attestation: I have reviewed the pertinent imaging results. My impression: Lots of calcifications in the large vessels but no obvious signs of bleed on noncontrast CT Radiologist's impression: IMPRESSION: No acute intracranial findings. Intracranial atherosclerosis. Incidental paranasal sinus mucosal inflammatory disease. CT angio head: Attestation: I have reviewed the pertinent imaging results. Radiologist's impression: Preliminary Report: There is no dissection. There is no intraluminal filling defect intracranially. The right vertebral artery is occluded throughout its course. There is a hypervascular focus at the superficial aspect of the cortex of the right frontal lobe favor a vascular malformation over an mass. This measures about 1 centimeter. Read by:?Adrián Porras MD @ 01/02/2023 07:17:17 ECG Data Attestation: I personally reviewed and interpreted this ECG as follows: Prior ECG tracings: not available for review Interpretation: Normal sinus rhythm, rate of 58. No significant ST or T-wave abnormalities. Normal R-wave progression. Normal axis. No signs of acute ischemia Discharge Plan Discharge Clinical Impression: Brain TIA Patient Disposition: Admitted As Inpatient Condition: Improved
--- NOTE | 2023-01-02 09:47 | CRLHL7_ITS ---
For Patients: As a result of the Century Cures Act, medical imaging exams and procedure reports are released immediately into your electronic medical record. You may view this report before your referring provider. If you have questions, please contact your health care provider. INDICATION: Neurologic symptoms. TECHNIQUE: Noncontrast Sagittal T1,Axial FSE T2, Flair, DWI, post contrast axial and coronal T1W images submitted. Compared to CT of the head performed earlier the same day FINDINGS: Mild cerebral atrophy. The ventricles, sulci and gyri are of normal size, shape and contour for age and degree of atrophy. Midline structures are centrally located. No convincing evidence of suspicious intra- or extra-axial fluid collections. Mild patchy regions of increased T2 signal within the periventricular and subcortical white matter of both cerebral hemispheres. Prior noted region of contrast enhancement in the apical posterior right frontal lobe is again demonstrated but measures only 6 millimeters in size. 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 No regions of restricted diffusion or other suspicious regions of abnormal parenchymal enhancement. IMPRESSION: 1. No radiographic evidence of acute intracranial abnormalities. 2. Mild cerebral atrophy. 3. Mild supratentorial white matter changes that are non-specific, but statistically most likely related to chronic small vessel ischemic disease. 4. 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 Dictated by Samuel Fonseca MD @ 01/02/2023 5:44:04 PM Dictated by: Samuel Fonseca MD @ 01/02/2023 17:44:10 (Electronically Signed)
--- NOTE | 2023-01-02 09:49 | ED.NURSE ---
brain MRI w/wo ordered per Dr. Katerine Bennett, neuro
--- NOTE | 2023-01-02 11:10 | P.IMHP_ITS ---
Hospitalist- H&P: HPI History of Present Illness Date Seen: 01/02/23 Chief complaint: head pain, dizzy Narrative: Jose Silva is a 77 year old male past medical history significant for hypertension, hyperlipidemia, colitis, ocular migraine is admitted to the medical floor from the ED for further workup stroke-like symptoms. Patient reports going to bed last night around 10:00 p.m., feeling his usual state of health. He woke up around 4:00 a.m. as he often does however this morning with pain behind his right ear which radiated into his right jaw. He got out of bed and while walking to the bathroom felt he was listing to the left side. He returned to bed feeling very dizzy so walked to the living room to lie down. By 0430 his symptoms had worsened, complaining of his vision panning to the left. He called for his as he was unable to safely walk back to the bedroom. Reports being nauseous without vomiting. Upon arrival to the ER, symptoms started to improve, completely resolving by 6:30 a.m.. Currently, denies any headache or head pain. No further dizziness or vertigo symptoms. Denies recent fevers chills or sweats. Denies recent nausea, vomiting, diarrhea otherwise. No change in bowel movements. No change in urinary symptoms. Has a history of 1 singular ocular migraine approximately 10 years ago. Reports lightheadedness with bending over (tying his shoe, picking up a golf ball, etc.) which he attributes to his lisinopril. This resolves quickly on its own. ED provider discussed with Neuro Stroke Service, recommending loading dose of aspirin followed by 81 mg daily, statin daily, further workup to include MRI brain, echocardiogram. Patient is a former smoker, currently using nicorette. Quit drinking alcohol 35 years ago. Retired. Active golfer. Lives at home with his . Review of Systems Narrative: REVIEW OF SYSTEMS: Complete review of systems performed and negative unless otherwise stated in HPI or below. [facility] Medical History (Updated 01/02/23 @ 11:46 by Mita Mas PA-C) Colitis ?K52.9 - Noninfective gastroenteritis and colitis, unspecified (ICD-10) Ocular migraine ?G43.109 - Migraine with aura, not intractable, without status migrainosus (ICD-10) Hyperlipidemia ?E78.5 - Hyperlipidemia, unspecified (ICD-10) Hypertension ?I10 - Essential (primary) hypertension (ICD-10) Social History What is your current living situation?: I presently have a place to live Problems where you live: no known problems Problems where you live details: n/a In the past 12 months, utilities in danger of being shut off: no In past 12 months, lack of transportation kept you from medical appts, meetings, work, or getting things needed for daily living: no In the past 12 mos, have been you worried that your food would run out before you had money to buy more?: never true In the past 12 mos, the food you bought just didn't last and you didn't have money to buy more?: never true Smoking Status: Former smoker Do you use any of these nicotine containing products: Other Nicotine containing products detail: uses nicotine lozenges about 5 times/day Second hand tobacco smoke exposure: No How often do you have a drink containing alcohol: never How often do you have six or more drinks on one occasion: Never AUDIT-C Alcohol total score: 0 Non-prescribed substance use: denies use Caffeine: Yes (2 cups/day coffee) How often does anyone, including family, friends and others, physically hurt you : never How often does anyone, including family, friends and others, insult or talk down to you: never How often does anyone, including family, friends and others, threaten you with harm: never How often does anyone, including family, friends and others, scream or curse at you: never service: Yes Meds Home Medications and Allergies Home Medications Medication Instructions Recorded Confirmed Type lisinopril 10 mg tablet 10 mg PO HS 06/21/22 01/02/23 History tamsulosin 0.4 mg capsule 0.4 mg PO DAILY 06/21/22 01/02/23 History aspirin 81 mg capsule 81 mg PO DAILY 06/24/22 01/02/23 History cholecalciferol (vitamin D3) 50 50 mcg PO DAILY 01/02/23 01/02/23 History mcg (2,000 unit) capsule (Vitamin D3) melatonin 5 mg capsule 5 mg PO HS 01/02/23 01/02/23 History mesalamine 1.2 gram tablet,delayed 3.6 g PO DAILY 01/02/23 01/02/23 History release (Lialda) nitroglycerin 0.4 mg sublingual 0.4 mg sublingual Q5M PRN 01/02/23 01/02/23 History tablet prazosin 1 mg capsule (Minipress) 1 mg PO QHS 01/02/23 01/02/23 History Allergies Allergy/AdvReac Type Severity Reaction Status Date / Time perflutren [From [facility]] AdvReac Intermediate flank pain Verified 01/02/23 10:53 Exam Narrative: Exam Narrative: PHYSICAL EXAM General: Very pleasant, conversant, NAD HEENT: Normocephalic, atraumatic, sclera white, EOMI, oral mucosa moist Cardiovascular: RRR, S1S2. No pitting edema Pulmonary: CTA bilaterally without rhonchi, rales, expiratory wheezes. No dyspnea Abdominal: Soft, nondistended, NTTP Neurological: Alert, answering questions appropriately, cranial nerves intact, neuro exam unremarkable concurrently, no focal findings Extremities: No gross joint deformity or swelling. AROMI Skin: Warm, dry. No rash Const: Vital Signs, click to edit/add: Vital Signs - 24 hr 01/02/23 06:22 01/02/23 06:36 01/02/23 06:38 Temperature 97.6 F Pulse Rate 59 L Pulse Rate [Left P ulse Oximeter] Pulse Rate [Pulse Oximeter] 57 L Respiratory Rate 16 Blood Pressure Blood Pressure [Ri ght Arm] Blood Pressure [Ri ght Upper Arm] 148/90 H Pulse Oximetry 94 98 97 [facility] 01/02/23 06:45 01/02/23 06:46 01/02/23 06:52 Temperature Pulse Rate 57 L 56 L 56 L Pulse Rate [Left P ulse Oximeter] Pulse Rate [Pulse Oximeter] Respiratory Rate Blood Pressure 147/79 H 131/84 Blood Pressure [Ri ght Arm] Blood Pressure [Ri ght Upper Arm] Pulse Oximetry 94 95 96 Oxygen Delivery Sd thod 01/02/23 07:00 01/02/23 07:02 01/02/23 07:12 Temperature Pulse Rate 57 L 56 L 58 L Pulse Rate [Left P ulse Oximeter] Pulse Rate [Pulse Oximeter] Respiratory Rate Blood Pressure 161/80 H 146/100 H Blood Pressure [Ri ght Arm] Blood Pressure [Ri ght Upper Arm] Pulse Oximetry 98 96 95 Oxygen Delivery Sd thod 01/02/23 07:15 01/02/23 07:22 01/02/23 07:30 Temperature Pulse Rate 58 L 57 L 56 L Pulse Rate [Left P ulse Oximeter] Pulse Rate [Pulse Oximeter] Respiratory Rate Blood Pressure 151/86 H Blood Pressure [Ri ght Arm] Blood Pressure [Ri ght Upper Arm] Pulse Oximetry 97 94 93 Oxygen Delivery Sd thod 01/02/23 07:32 01/02/23 07:42 01/02/23 07:45 Temperature Pulse Rate 60 55 L 57 L Pulse Rate [Left P ulse Oximeter] Pulse Rate [Pulse Oximeter] Respiratory Rate Blood Pressure 153/85 H 152/84 H Blood Pressure [Ri ght Arm] Blood Pressure [Ri ght Upper Arm] Pulse Oximetry 92 94 92 Oxygen Delivery Sd thod 01/02/23 08:00 01/02/23 08:02 01/02/23 08:15 Temperature Pulse Rate 57 L 56 L 55 L Pulse Rate [Left P ulse Oximeter] Pulse Rate [Pulse Oximeter] Respiratory Rate Blood Pressure 144/84 H Blood Pressure [Ri ght Arm] Blood Pressure [Ri ght Upper Arm] Pulse Oximetry 94 94 93 Oxygen Delivery Sd thod 01/02/23 08:30 01/02/23 08:45 01/02/23 09:00 Temperature Pulse Rate 56 L 53 L 55 L Pulse Rate [Left P ulse Oximeter] Pulse Rate [Pulse Oximeter] Respiratory Rate Blood Pressure Blood Pressure [Ri ght Arm] Blood Pressure [Ri ght Upper Arm] Pulse Oximetry 97 95 93 Oxygen Delivery Sd thod 01/02/23 09:02 01/02/23 09:15 01/02/23 09:46 Temperature Pulse Rate 57 L 55 L 56 L Pulse Rate [Left P ulse Oximeter] Pulse Rate [Pulse Oximeter] Respiratory Rate Blood Pressure 148/89 H Blood Pressure [Ri ght Arm] Blood Pressure [Ri ght Upper Arm] Pulse Oximetry 95 95 97 [facility] 01/02/23 10:15 Temperature 97.6 F Pulse Rate Pulse Rate [Left P ulse Oximeter] 58 L Pulse Rate [Pulse Oximeter] Respiratory Rate 16 Blood Pressure Blood Pressure [Ri ght Arm] 118/83 Blood Pressure [Ri ght Upper Arm] Pulse Oximetry 95 Oxygen Delivery Me thod Room Air Hospitalist - H&P: Result Labs Labs: Short CBC 01/02/23 Range/Units 06:18 WBC 6.41 (4.50-11.00) K/uL Hgb 16.6 (13.5-17.5) gm/dL Hct 49.9 (37.0-53.0) % Plt Count 260 (140-440) K/uL BMP 01/02/23 06:18 Sodium 138 Potassium 4.2 Chloride 108 Carbon Dioxide 23 BUN 12 Creatinine 0.8 Glucose 112 Calcium 9.2 ECG Attestation: I personally reviewed and interpreted this ECG as follows: (Sinus bradycardia, ventricular rate 58) Imaging CT scan - head: Attestation: I have reviewed the pertinent imaging results. Radiologist's impression: CTA neck with contrast bolus tracking. 3D angiographic rendering using maximum intensity projection (MIP) and images permanently archived. COMPARISON: None available. FINDINGS: The great vessels are patent. The common carotid arteries are patent. Mild (less than 50 percent) atherosclerotic stenoses of the bilateral proximal ICAs by NASCET criteria. The more distal cervical ICAs are patent. 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 The remains occluded throughout its course. The origin and cervical segments of the left vertebral artery are patent. IMPRESSION: 1. 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 2. Mild (<50%) stenosis of the bilateral proximal ICAs by NASCET criteria. CTA head with contrast bolus tracking. 3D angiographic rendering using maximum intensity projection (MIP) and images permanently archived. COMPARISON: None available. FINDINGS: The right vertebral remains occluded. The petrous, cavernous, and supraclinoid segments of the internal carotid arteries are patent. The anterior and middle cerebral arteries are patent. The anterior communicating artery is visualized and is within normal limits. The intracranial left vertebral artery, basilar trunk, and posterior cerebral arteries are patent. Scattered intracranial atherosclerotic disease. 10mm hypervascular lesion in the lesion in the posterior right frontal lobe. No evidence of cerebral aneurysm. IMPRESSION: 1. The right vertebral artery remains occluded intracranially. 2. 10mm hypervascular/enhancing lesion in the posterior right frontal lobe. This is nonspecific but may reflect an underlying arteriovenous shunting lesion. MRI of the brain with and without contrast as well as [id number] MRA of the head to include the vertex of the head is recommended. Pending the results of these examinations, catheter angiogram should be considered. Please note that all CT scans at this facility use dose modulation, iterative reconstruction, and/or weight-based dosing when appropriate to reduce radiation dose to as low as reasonably achievable. Dictated by Lui Gibbs MD @ 01/02/2023 10:37:14 AM Assessment and Plan Assessment and plan (1) Brain TIA: Problem comment: -dizziness/vertigo symptoms, resolved -CTA head/neck shows occlusion of right vertebral artery, 10mm hypervascular lesion in the posterior right frontal lobe -ED provider discussed with Neuro Stroke Service, recommending admission for further workup -MRI brain ordered. Will follow up with Neuro Stroke Service when results available, given findings CTA head/neck -echocardiogram ordered -vital signs, telemetry, neuro checks q.4 hours -lipid panel -regular diet -PT/OT consults -continue aspirin 81 mg daily, 324 mg given in ED -declines statin secondary to previous side effects, recommend outpatient follow-up with PCP for other options Status: Acute (2) Hypertension: Problem comment: -currently stable, continue lisinopril Status: Acute (3) Hyperlipidemia: Problem comment: -reports unable to tolerate statin, causing weakness and shortness of breath -lipid panel ordered Status: Acute Plan CODE: Full as discussed with patient VTE PPX: SCDs Disposition: Observation, pending further workup
[2023-01-02 11:23] LABS: Cholesterol* 189 mg/dL (90-199); Triglycerides* 116 mg/dL (40-149)
[2023-01-02 11:24] LABS: HDL Cholesterol* 33 mg/dL (>=40); LDL Cholesterol Calculated 133 mg/dL (<100)
--- NOTE | 2023-01-02 14:38 | PC.NURSE ---
Patient A/Ox3
--- NOTE | 2023-01-02 14:39 | PC.NURSE ---
Pt A/Ox3, pleasant and cooperative. Pt presented to ED with headache and dizziness however symptoms have improved since getting to hospital. steady on feet. voiding WNL, last BM yesterday. Echo done, MRI at 1600. pt denies pain. spouse at bedside. report given to JENNIFER Henson.
[2023-01-02 15:50] LABS: Cholesterol* 192 mg/dL (90-199)
[2023-01-02 15:51] LABS: HDL Cholesterol* 34 mg/dL (>=40); LDL Cholesterol Calculated 135 mg/dL (<100); Triglycerides* 115 mg/dL (40-149)
--- NOTE | 2023-01-02 17:50 | PC.NURSE ---
end of shift. Pt is A/Ox4, he is very pleasant. no pain. tele shows NSR. SL is patent. he is drinking, eating and voiding. last BM yesterday, MRI done. spouse at bedside. she is loving and caring.
[2023-01-02] MEDS: MELATONIN 3 MG TABLET 6 MG PO (20:51)
[2023-01-02] MEDS: PRAZOSIN HCL 1 MG CAPSULE PO (20:51)
[2023-01-02] MEDS: lisinopriL 10 MG TABLET PO (20:51)
[2023-01-02] MEDS: SODIUM CHLORIDE 0.9 % (FLUSH) 10 ML SYRINGE 5 ML IVF (20:53)
[2023-01-03 03:00] VITALS: BP 105/60; PULSE 6; RESP 16; TEMP 36.5; O2SAT 9
--- NOTE | 2023-01-03 05:03 | PC.NURSE ---
Shift note: Pt has been doing very good. Alert and oriented, ambulate independently in room. No neurologic deficit noted, speech clear, ROM and equal strength in both upper and lower and extremities. Cardiac monitoring has been in NSR. Pt had adequate sleep and vitally stable.
[2023-01-03 07:00] VITALS: BP 141/99; PULSE 80; PULSE 83; RESP 16; TEMP 36.6; O2SAT 94
[2023-01-03] MEDS: ASPIRIN 81 MG TABLET EC PO (08:30)
[2023-01-03] MEDS: TAMSULOSIN HCL 0.4 MG CAPSULE PO (08:30)
[2023-01-03] MEDS: SODIUM CHLORIDE 0.9 % (FLUSH) 10 ML SYRINGE 5 ML IVF (08:30)
[2023-01-03] MEDS: MESALAMINE 1.2 GM 3.6 EACH PO (08:31)
[2023-01-03 11:00] VITALS: BP 138/85; PULSE 89; RESP 16; TEMP 36.6; O2SAT 94
[2023-01-03 11:23] LABS: Hemoglobin A1C* 5.78 % (0-5.6)
--- NOTE | 2023-01-03 13:42 | PC.NURSE ---
discharge. pt has been very pleasant. no pain. Pt is A/Ox4,. tele shows NSR. SL is patent. he is drinking, eating and voiding. last BM yesterday, spouse at bedside. she is loving and caring. tele stoke was done. pt was given discharge packet. went over med, appointments, education and instructions.
--- NOTE | 2023-01-03 14:53 | P.DS_ITS ---
DS: Providers Provider Date Seen: 01/03/23 Date of admission: 01/02/23 09:57 Primary care physician: Christiano Alegre MD Admitting Clinician: Jeaneth Post MD Consults: 01/02/23 10:57 Consult to Occupational Therapy [CONS] Routine Comment: w/ u stroke, dizziness Reason(s) for OT Consult:: Evaluate and Treat Any Restrictions?:: No Restrictions Consult to Physical Therapy [CONS] Routine Comment: w/u stroke, dizziness Reason(s) for PT Consult:: Evaluate and Treat Any Restrictions?:: No Restrictions Attending Physician on discharge: Mita Mas [facility], PA[facility]gaC [facility] Date of Discharge: 01/03/23 DS: Diagnosis Discharge Diagnosis (1) Brain TIA: Status: Acute Problem details: -dizziness/vertigo symptoms, resolved -CTA head/neck shows occlusion of right vertebral artery, 10mm hypervascular lesion in the posterior right frontal lobe -ED provider discussed with Neuro Stroke Service. Follow-up discussion with Dr. Bennett on 01/03/2023 recommending outpatient Neurology follow-up. 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 Discharged with Plavix 75 mg to be taken daily for 21 days. (2) Hypertension: Status: Acute Problem details: -currently stable, continued on lisinopril (3) Hyperlipidemia: Status: Acute Problem details: -reports unable to tolerate statin, causing weakness and shortness of breath -lipid panel ordered. Recommend outpatient follow-up with PCP for other options. DS: Summary Hospital Course Hospital Course: [age] year old male past medical history significant for hypertension, hyperlipidemia, giant cell arteritis workup was admitted to the medical floor for further workup stroke-like symptoms, suspected TIA. Course of care and details as noted above. Remainder of chronic medical comorbidities were monitored and managed with home medications. Status at Discharge Overall status at discharge: patient is back to baseline Time Spent with Patient Time attestation: Total time spent providing and/or coordinating discharge services: Time spent: Greater than 30 minutes Exam Narrative: Exam Narrative: PHYSICAL EXAM General: Pleasant, conversant, NAD HEENT: Normocephalic, atraumatic, sclera white, EOMI, oral mucosa moist Cardiovascular: RRR, S1S2. No pitting edema Pulmonary: CTA bilaterally without rhonchi, rales, expiratory wheezes. No dyspnea Abdominal: Soft, nondistended, NTTP Neurological: Alert, answering questions appropriately, cranial nerves intact, no focal findings Extremities: No gross joint deformity or swelling. AROMI Skin: Warm, dry. No rash Const: Vital Signs, click to edit/add: Vital Signs - 24 hr 01/02/23 14:54 01/02/23 15:10 01/02/23 15:53 Temperature 97.6 F Pulse Rate 58 L Pulse Rate [Left P ulse Oximeter] 61 62 Respiratory Rate 16 16 Blood Pressure [Ri ght Arm] 153/77 H Pulse Oximetry 95 Oxygen Delivery Me thod Room Air Oxygen Flow Rate 0 01/02/23 19:00 01/02/23 23:00 01/02/23 23:00 Temperature 97.7 F Pulse Rate 64 Pulse Rate [Left P ulse Oximeter] 64 Respiratory Rate 16 16 Blood Pressure [Ri ght Arm] 147/86 H Pulse Oximetry 95 Oxygen Delivery Me thod Room Air Oxygen Flow Rate 0 01/02/23 23:00 01/03/23 03:00 01/03/23 07:00 Temperature 97.8 F 97.7 F Pulse Rate 80 Pulse Rate [Left P ulse Oximeter] 67 6 L Respiratory Rate 16 16 Blood Pressure [Ri ght Arm] 117/64 105/60 Pulse Oximetry 92 9 L Oxygen Delivery Me thod Room Air Room Air Oxygen Flow Rate 0 0 01/03/23 07:00 01/03/23 11:00 Temperature 97.8 F 97.8 F Pulse Rate Pulse Rate [Left P ulse Oximeter] 83 89 Respiratory Rate 16 16 Blood Pressure [Ri ght Arm] 141/99 H 138/85 Pulse Oximetry 94 94 Oxygen Delivery Me thod Room Air Room Air Oxygen Flow Rate DS: Data Data Completed and Pending Labs on day of discharge: Labs from last 24 hours 01/03/23 01/02/23 11:04 06:18 Hemoglobin A1c 5.78 H Triglycerides 115 Cholesterol 192 LDL Cholesterol, Calc 135 H HDL Cholesterol 34 L Discharge Plan Discharge Disposition: Home, Self-Care Date of Admission: 01/02/23 09:57 Attending Provider on Discharge: Mita Mas Primary Care Provider: Christiano Alegre Condition: Improved Anticipated Discharge Date/Time: 01/03/23 11:34 Discharge Medications: New clopidogrel [Plavix] 75 mg tablet 75 mg PO DAILY 21 Days Qty: 21 0RF Continued tamsulosin 0.4 mg capsule 0.4 mg PO DAILY lisinopril 10 mg tablet 10 mg PO HS aspirin 81 mg capsule 81 mg PO DAILY prazosin [Minipress] 1 mg capsule 1 mg PO QHS cholecalciferol (vitamin D3) [Vitamin D3] 50 mcg (2,000 unit) capsule 50 mcg PO DAILY nitroglycerin 0.4 mg tablet, sublingual 0.4 mg sublingual Q5M PRN Rx Instructions: do not exceed 3 doses per episode mesalamine [Lialda] 1.2 gram tablet,delayed release (DR/EC) 3.6 g PO DAILY melatonin 5 mg capsule 5 mg PO HS Discharge Orders: Discharge Order (Routine); Ordered 01/03/23 Ordered By: Mita Mas Patient Education: Clopidogrel (By mouth), Transient Ischemic Attack (DC) Additional Instructions: Start taking Plavix 75 mg daily for a total of 21 days. Continue to take your 81mg aspirin daily. It is important you discuss starting a new statin with your PCP. You will need outpatient follow up with your Neurologist. Activity Level: No Restrictions Discharge Diet: Regular Follow Up Appointments: Christiano Alegre MD [Primary Care Provider] - 01/12/23 10:55 am (post hospital follow up, TIA. A1c pending at discharge. Recommend trial of other statin. ) Mikael Escalera MD [Referring] - 01/10/23 (Suspected TIA, possible vascular malformation frontal lobe, vertiginous symptoms #[phone] call for appointment. Call for an appointment) Forms: [employer] Info Instructions
== END 2023-01-03 13:10 | disposition home or self-care (01) ==
LOC: ED 09:10 → MEDSURG 10:00
PROVIDERS: Physician Assistant; Admitting Provider Family Medicine; Emergency Provider Family Medicine; PCP Family Medicine; Visit Provider Family Medicine
DX: G45.9 Transient cerebral ischemic attack, unspecified (principal); I10 Essential (primary) hypertension; E78.5 Hyperlipidemia, unspecified; T46.6X5A Adverse effect of antihyperlipidemic and antiarteriosclerotic drugs, initial encounter; Z79.82 Long term (current) use of aspirin; Z87.891 Personal history of nicotine dependence
CPT/HCPCS: 36415; 70450; 70496; 70498; 70553; 80048; 80061; 83036; 84484; 85025; 86140; 93005; 93306; 94761; 97116; 97161; 97165; 97535; 99284; 99285; G0378; G0427; A9270; A9575; Q9967

== ENCOUNTER 2023-01-06 08:59 | Emergency (ER) | payer MEDICARE, OTHER, SELFPAY ==
[2023-01-06 09:05] VITALS: BP 145/84; PULSE 57; RESP 16; TEMP 35.3; O2SAT 97; BMI 28.5
--- NOTE | 2023-01-06 10:16 | ED_ITS ---
HPI - General Adult General Time Seen by Provider: 10:16 Date Seen: 01/06/23 Chief complaint: Dizziness/Vertigo Stated complaint: headache,dizzines,vomiting,blurry vision Time Seen by Provider: 01/06/23 10:15 Source: patient and RN notes reviewed Mode of arrival: ambulatory Limitations: no limitations History of Present Illness HPI narrative: This 77-year-old male is coming in with recurrent vertigo symptoms starting around 6am today. He had been up to the bathroom around 5:00 a.m., went back to bed and could not sleep. Around 6:00 a.m. these vertigo symptoms started, he has had significant nausea and multiple episodes of vomiting. He notes no tinnitus or hearing loss with this. He describes his vision is globally blurry with it. He feels imbalance. There is a spinning sensation. He reportedly was diagnosed with possible TIA, hospitalized overnight with negative MRI workup for acute ischemia or infarct. 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 This obviously must if felt to been chronically there. He states his symptoms suddenly just went away during that hospitalization. He was recommended to follow up outpatient with Neurology. He does not feel any incoordination in his arms or legs. Is still feeling nauseated. No fevers, no illness. Related Data Home Medications Medication Instructions Recorded Confirmed lisinopril 10 mg tablet 10 mg PO HS 06/21/22 01/02/23 tamsulosin 0.4 mg capsule 0.4 mg PO DAILY 06/21/22 01/02/23 aspirin 81 mg capsule 81 mg PO DAILY 06/24/22 01/02/23 cholecalciferol (vitamin D3) 50 50 mcg PO DAILY 01/02/23 01/02/23 mcg (2,000 unit) capsule (Vitamin D3) melatonin 5 mg capsule 5 mg PO HS 01/02/23 01/02/23 mesalamine 1.2 gram tablet,delayed 3.6 g PO DAILY 01/02/23 01/02/23 release (Lialda) nitroglycerin 0.4 mg sublingual 0.4 mg sublingual Q5M PRN 01/02/23 01/02/23 tablet prazosin 1 mg capsule (Minipress) 1 mg PO QHS 01/02/23 01/02/23 Previous Rx's Medication Instructions Recorded clopidogrel 75 mg tablet (Plavix) 75 mg PO DAILY 21 days #21 tabs 01/03/23 diazepam 5 mg tablet (Valium) 5 mg PO BID PRN #10 tabs 01/06/23 hydroxyzine HCl 25 mg tablet 25 mg PO TID PRN #30 tabs 01/06/23 meclizine 25 mg tablet 25 mg PO TID #30 tabs 01/06/23 ondansetron 4 mg disintegrating 4 mg PO Q6H PRN nausea and 01/06/23 tablet vomiting #20 tabs Allergies Allergy/AdvReac Type Severity Reaction Status Date / Time [facility] AdvReac Intermediate flank pain Verified 01/02/23 10:53 Review of Systems Status of ROS: Reports: 6 or more systems reviewed and unremarkable except as noted in History and below [facility] Medical History Colitis ?K52.9 - Noninfective gastroenteritis and colitis, unspecified (ICD-10) Ocular migraine ?G43.109 - Migraine with aura, not intractable, without status migrainosus (ICD-10) Hyperlipidemia ?E78.5 - Hyperlipidemia, unspecified (ICD-10) Hypertension ?I10 - Essential (primary) hypertension (ICD-10) Social History What is your current living situation?: I presently have a place to live Problems where you live: no known problems Problems where you live details: n/a In the past 12 months, utilities in danger of being shut off: no In past 12 months, lack of transportation kept you from medical appts, meetings, work, or getting things needed for daily living: no In the past 12 mos, have been you worried that your food would run out before you had money to buy more?: never true In the past 12 mos, the food you bought just didn't last and you didn't have money to buy more?: never true Smoking Status: Former smoker Do you use any of these nicotine containing products: Other Nicotine containing products detail: uses nicotine lozenges about 5 times/day Second hand tobacco smoke exposure: No How often do you have a drink containing alcohol: never How often do you have six or more drinks on one occasion: Never AUDIT-C Alcohol total score: 0 Non-prescribed substance use: denies use Caffeine: Yes (2 cups/day coffee) How often does anyone, including family, friends and others, physically hurt you : never How often does anyone, including family, friends and others, insult or talk down to you: never How often does anyone, including family, friends and others, threaten you with harm: never How often does anyone, including family, friends and others, scream or curse at you: never service: Yes Exam Const: Vital Signs, click to edit/add: Vital Signs - 24 hr 01/06/23 09:05 01/06/23 10:51 01/06/23 11:13 Temperature 95.5 F L Pulse Rate [Pulse Oximeter] 57 L 54 L 57 L Respiratory Rate 16 16 16 Blood Pressure [Ri ght Upper Arm] 145/84 H 136/73 120/67 Pulse Oximetry 97 91 94 Oxygen Delivery Me thod Room Air Room Air Room Air 01/06/23 11:59 01/06/23 12:00 01/06/23 12:30 Temperature Pulse Rate [Pulse Oximeter] 60 60 59 L Respiratory Rate 18 18 18 Blood Pressure [Ri ght Upper Arm] 137/80 142/73 H 155/90 H Pulse Oximetry 93 92 94 Oxygen Delivery Me thod Room Air Room Air Room Air 77-year-old male is seen in exam room 5 in bed. He is alert interactive, no parents stressed but looks like he does not feel the best. Speech is normal, symmetrical facial function, no gross motor abnormalities noted in facial exam. Tongue protrudes midline, oropharynx appears normal. Pupils are equal and round, extraocular muscles intact with conjugate gaze but has most definite notable right beating horizontal nystagmus. Neck is supple, no palpable masses, do not noting jugular venous distension. Lungs are clear, good air entry no wheezing crackles. CV regular rate and rhythm, no murmur, normal S1 and S2. Abdomen is soft, no rebound or guarding organomegaly. He has no lower extremity edema. Strength and sensory is 5/5 and symmetric. No tremors, no dysmetria. Normal [id number] bilaterally. He has normal light touch sensation. Documenting provider has reviewed patient's vital signs: yes Course Course ED Course: Reviewed with patient that we will stab lotion IV, start IV medicines. I did leave to take a closer look at his imaging scans and his reports from the hospitalization. I then did subsequently call Neurology. He will be getting some IV fluids, some IV Zofran and oral meclizine to start. Will see if Neurology wants to do any further imaging or if they perhaps think that this might actually be peripheral with recurrent symptoms at this time. Reevaluation(s) Time of Reevaluation #1: 11:37 Reevaluation #1: Patient was sleeping, did awaken him. States he still feels ?foggy?. He is starting to move his head around, is not clear whether not he is still feeling the vertigo symptoms. Have reviewed with them that he is felt to have peripheral vertigo based on my discussion with Dr. Bennett today. The neurologist have not recommended that we repeat imaging. Given that he is having the same symptoms, this is extremely unlikely to be a central process with normal neuro imaging from just this last week. Dr. Bennett did recommend that he go to the center for balance and dizziness. Time of Reevaluation #2: 12:11 Reevaluation #2: Nursing staff reports that patient was up ambulatory to the bathroom and had to hang on the wall, still felt the room was spinning. He had received 5 of oral Valium and 25 mg oral meclizine. His nausea has improved however after the Zofran. Will give another dose of meclizine 25 mg. Consider some Vistaril, may need to consider hospitalization if he is extremely symptomatic for IV fluid support. Time of Reevaluation #3: 13:25 Reevaluation #3: Patient was just up to the restroom, is still feeling vertiginous but no nausea now. We will try some Vistaril. He does feel like he perhaps could go home. We will see how he responds the Vistaril. He and his and I discussed the difference between central and peripheral vertigo. The thought is for him that this is peripheral vertigo with recurrent attacks and negative MRI and neuro imaging workup done just this last week with symptoms. We did discuss physical therapy in town at [facility], it sounds like they may be would like to start there before going to the dizziness and balance Center in the [facility]. They do have a follow-up this coming Sunday with their primary at [facility]. Consultations Consultation #1: Page stroke Neurology at [place], initially spoke with Dr. Hanks but Dr. Bennett is also on as well whom consult on this patient just a few days ago. I did subsequently speak with her, we reviewed this case. She agrees that this is likely peripheral and we should treat as such, no further neuro imaging as this has been done. Time: 10:30 Consultation #2: Did page Dr. Bennett back to just confirm the presence of the right vertebral artery occlusion. There was no stroke on the follow-up MRI thus making this much more likely that was chronic. She is recommending the dizzy and balance Center as they can not help tease out or insure that this is peripheral. I have reviewed my a conversation subsequently with Teddy in his to clarify some of the issues they had. He does have an occluded vessel, unknown when this happened but likely chronic, it does show that he is at risk for vascular disease. He does need to be mindful further stroke symptoms, other vascular occlusion such as heart disease etc.. He is on dual antiplatelet therapy and should continue. She does want him to follow up with outpatient Neurology as well. Time: 14:13 Vital Signs Vital signs: Initial Vital Signs Temperature 95.5 F L 01/06/23 09:05 Temperature Source Temporal Artery Scan 01/06/23 09:05 Pulse Rate 57 L 01/06/23 09:05 Pulse Rhythm Regular 01/06/23 09:05 Respiratory Rate 16 01/06/23 09:05 Blood Pressure 145/84 H 01/06/23 09:05 Blood Pressure Mean 104 01/06/23 09:05 Pulse Oximetry 97 01/06/23 09:05 Oxygen Delivery Method Room Air 01/06/23 09:05 Vital Signs Temperature 95.5 F L 01/06/23 09:05 Pulse Rate 57 L 01/06/23 09:05 Respiratory Rate 16 01/06/23 09:05 Blood Pressure 145/84 H 01/06/23 09:05 Pulse Oximetry 97 01/06/23 09:05 Oxygen Delivery Method Room Air 01/06/23 09:05 Temperature 95.5 F L 01/06/23 09:05 Pulse Rate 59 L 01/06/23 12:30 Respiratory Rate 18 01/06/23 12:30 Blood Pressure 155/90 H 01/06/23 12:30 Pulse Oximetry 94 01/06/23 12:30 Oxygen Delivery Method Room Air 01/06/23 12:30 Discharge Plan Discharge Clinical Impression: Vertigo Patient Disposition: Home, Self-Care Condition: Stable Instructions: Vertigo (ED) Additional Instructions: Use meclizine 25 mg 3 times a day scheduled for the next 3-5 days, can wean down on it as you are feeling better. Will write for hydroxyzine as well as Valium, use as needed for more severe symptoms. Zofran is to be used for nausea. You need to be referred back to Neurology and the dizziness and balance Center her Treat the neurologist that is aware of your situation from [place]. If you feel you are worsening at home, have further concerns, we do recommend re- evaluation. Activity Level: Activity as Tolerated Discharge Diet: Heart Healthy (2 gm sodium, low fat) Prescriptions: New meclizine 25 mg tablet 25 mg PO TID Qty: 30 0RF diazepam [Valium] 5 mg tablet 5 mg PO BID PRNQty: 10 0RF hydroxyzine HCl 25 mg tablet 25 mg PO TID PRNQty: 30 0RF ondansetron 4 mg tablet,disintegrating 4 mg PO Q6H PRN (Reason: nausea and vomiting) Qty: 20 0RF No Action tamsulosin 0.4 mg capsule 0.4 mg PO DAILY lisinopril 10 mg tablet 10 mg PO HS aspirin 81 mg capsule 81 mg PO DAILY prazosin [Minipress] 1 mg capsule 1 mg PO QHS cholecalciferol (vitamin D3) [Vitamin D3] 50 mcg (2,000 unit) capsule 50 mcg PO DAILY nitroglycerin 0.4 mg tablet, sublingual 0.4 mg sublingual Q5M PRN Rx Instructions: do not exceed 3 doses per episode mesalamine [Lialda] 1.2 gram tablet,delayed release (DR/EC) 3.6 g PO DAILY melatonin 5 mg capsule 5 mg PO HS clopidogrel [Plavix] 75 mg tablet 75 mg PO DAILY 21 Days Qty: 21 0RF Follow Up/Referrals: Christiano Alegre MD [Primary Care Provider] - Stand Alone Forms: [employer] Info Instructions
[2023-01-06] MEDS: MECLIZINE HCL 25 MG TABLET PO ×2 (10:40→12:31)
[2023-01-06] MEDS: ONDANSETRON 2 MG/ML inj 4 MG IVP (10:40)
[2023-01-06] MEDS: 0.9 % SODIUM CHLORIDE 500 ML 500 ML IV (10:40)
[2023-01-06 10:51] VITALS: BP 136/73; PULSE 54; RESP 16; O2SAT 91
--- OUTSIDE RECORDS SUMMARY | 2023-01-06 11:05 | XMS_ITS | Continuity of Care Document ---
Author Name Unknown Organization [facility] Address [address] [address] [place] [address] Phone Care Team Providers Care Supervisor Webbing Name Role Phone Unavailable Unavailable Unavailable Allergies, [...] Diagnoses Date Provider Providers Copied on Encounter [facility], [address] [address], [place], [place], [id number], [place] tel:[phone] [facility] Colon Cancer ScreeningHemorrh oids NosFamily Hx/Colonic Polyps 8200 [id number] No Information Family History Family Member Type Diagnosis Age At Onset No Information Payers Payer name Insurance type Covered democrat ID Authoriza tion(s) [employer] Federal [place] [id number] [employer] [id number] Social History Type Description Quantity Date Captured [...]
[2023-01-06] MEDS: diazePAM 5 MG TABLET PO (11:10)
[2023-01-06 11:13] VITALS: BP 120/67; PULSE 57; RESP 16; O2SAT 94
[2023-01-06 11:59] VITALS: BP 137/80; PULSE 60; RESP 18; O2SAT 93
[2023-01-06 12:00] VITALS: BP 142/73; PULSE 60; RESP 18; O2SAT 92
--- NOTE | 2023-01-06 12:01 | ED.NURSE ---
Patient ambulated to restroom independently. He was steady on his feet but held onto the wall, noting it felt like the room was spinning a bit. Nausea has resolved.
[2023-01-06 12:30] VITALS: BP 155/90; PULSE 59; RESP 18; O2SAT 94
[2023-01-06] MEDS: hydrOXYzine pamoate 25 MG CAPSULE PO (13:36)
== END 2023-01-06 14:32 | disposition home or self-care (01) ==
PROVIDERS: Emergency Provider Family Medicine; PCP Family Medicine
DX: R42 Dizziness and giddiness (principal)
CPT/HCPCS: 96374; 99284; A9270; J2405; J7120

== ENCOUNTER 2023-02-28 10:30 | Outpatient (RCR) | payer MEDICARE, OTHER, SELFPAY ==
--- NOTE | 2023-01-11 08:52 | PT.OPEX ---
PT [place] Outpatient Eval PT [facility] Outpatient Eval Start: 01/11/23 07:16 Freq: Status: Active Protocol: Document 01/11/23 07:16 OVIDIO (Rec: 01/11/23 07:22 OVIDIO [id number]) E-signed By Linda Ivan, PT Physical Therapy Outpatient Evaluation Insurance Information Recert Due Date 01/11/23 Insurance Name Medicare B Medical Diagnosis BPPV Vertigo Treating Diagnosis BPPV Referring Dottie Peace Subjective Subjective Teddy reports having dizziness symptoms which started 01/02/23 . He reports just waking up and having moderate dizziness with severe DEAL at the back of his head. Vertigo started 4 days ago, symptoms of nausea. Went to ER. Started Meclizine and fluids. Symptoms copied a stroke, so my Dr consulted with a neurologist and completed an MRI. He reports having a small carotid artery occlusion, but that has not changed in about 10 years. Every thing checked out fine, no other findings. 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 He has been in PT for traction in the past, sees a chiropractor intermittently, more for LB now. He reports he feels a bit off like his Left eye is out of focus, otherwise fairly normal. Pain Comments Vertigo symptoms of 06/23 ( initially 12/24) Date of Last Physician Visit 01/06/23 Current Work Status Retired Preferred Name Teddy Precautions Treatment Precautions/Contraindications Colitis, Ocular Migraine, Hypertension, chronic occlusion of Rt carotid artery Therapy Limitations/Systems Review Vision Assessment Assessment/Impression 77 yo male with DX of Vertigo, which he reports has been present for the past 1.5 weeks . He arrived to dept via IND ambulation without any AD. He presents with failry good ambulation, no reaching for villegas, symmetric stride and heel to toe gait. He has good visual tracking and vergence testing. CX AROM is WFL. With execution of Hedy-hallpike, he had very slight up beating Ny when testing Rt side. Lt was Negative. Thus, will continue treatment with [place] repositioning for Rt BPPV and progressive VOR exercises. Thank you for this referral. Plan of Care Rehabilitation Potential Good Physical Therapy Goals In 8-10 visits, Teddy will be able to report: 1. Reduced vertigo symptoms from reported this date 06/23 to 04/25 in intensity and frequency of occurance. 2. Reduced self scoring Dizziness Handicap Index from 18/100 to at least 10/100 3. Return to at least 90% PLOF Coordination/Communication With Referral Source Treatment Plan/Direct Interventions Canalith Repositioning,Joint Mobilization,Manual Therapy, Neuromuscular Re-ed,Self-Care/ Home Management,Therapeutic Activities,Therapeutic Exercises Frequency/Duration 2X/Wk for 10 visits Patient Will Be Discharged From Therapy Completion of LTG(s),Skills Plateau,Independent w/HEP, Independently Progressing Evaluation Billing Untimed Code Treatment Minutes 25 Complexity Low Certification Information Initial Certification Date 01/11/23 Ending Certification Date 04/07/23 Provider Signature Shows Agreement With POC & Medical Necessity Physician Signature & Date Requested Please Sign/Date Here Physician Comment/Change : Physician NPI Number #
== END 2023-03-22 11:47 | disposition home or self-care (01) ==
PROVIDERS: PCP Family Medicine; Visit Provider Family Medicine
DX: H81.10 Benign paroxysmal vertigo, unspecified ear (principal); Z51.89 Encounter for other specified aftercare
CPT/HCPCS: 97110; 97140; 97161; 97530